=== PATIENT | female | born 1990 | race Caucasian/White ===

== ENCOUNTER → 2021-09-16 | Outpatient (CLI) | payer OTHER ==
[2021-09-16 17:24] LABS: HIV 1&2 SCREEN CENTAUR NEGATIVE (NEGATIVE)
== END ==
LOC: M WUC 10:55
PROVIDERS: ATTEND Physician Assistant
DX: R30.0 Dysuria (principal); Z20.2 Contact with and (suspected) exposure to infections with a predominantly sexual mode of transmission

== ENCOUNTER → 2021-09-16 | Outpatient (REF) | payer OTHER ==
[2021-09-16 14:20] LABS: GC DNA AMPLIFICATION NEGATIVE (NEGATIVE)
== END ==
LOC: M LAB REF 12:13
PROVIDERS: ATTEND Physician Assistant
DX: R30.0 Dysuria (principal); Z20.2 Contact with and (suspected) exposure to infections with a predominantly sexual mode of transmission

== ENCOUNTER → 2021-10-07 | Outpatient (REF) | payer OTHER ==
[2021-10-07 17:25] LABS: GC DNA AMPLIFICATION NEGATIVE (NEGATIVE)
== END ==
LOC: M WUC 15:36
PROVIDERS: ATTEND Physician Assistant
DX: N76.0 Acute vaginitis (principal)

== ENCOUNTER 2021-10-23 18:19 | Emergency (ER) | payer OTHER ==
[~2021-10-23] VITALS: Ht 185.4 cm; Wt 84.1 kg
[2021-10-23 18:20] VITALS: BP 124/77
[2021-10-23] MEDS ORDERED: ONDANSETRON 4MG ORAL DISINTEGRATING TAB PO ONE (20:20)
[2021-10-23] MEDS ORDERED: BACTRIM 160MG/800MG DS TAB PO ONE (20:20)
[2021-10-23] MEDS ORDERED: ONDA4TAB6 PO (20:22)
[2021-10-23] MEDS ORDERED: SULF1TAB23 PO (20:22)
== END 2021-10-23 20:35 | disposition home or self-care (01) ==
LOC: M ED 18:19
DX: N30.91 Cystitis, unspecified with hematuria (principal); Z88.8 Allergy status to other drugs, medicaments and biological substances

== ENCOUNTER → 2022-03-30 | Outpatient (REF) | payer OTHER ==
[~2022-03-30] MED LIST: ONDA4TAB6 PO; SULF1TAB23 PO
[2022-03-30 23:17] LABS: GC DNA AMPLIFICATION NEGATIVE (NEGATIVE)
== END ==
LOC: M LAB REF 19:42
PROVIDERS: ATTEND Physician Assistant
DX: B37.31 Acute candidiasis of vulva and vagina (principal)

== ENCOUNTER 2022-04-02 18:35 | Emergency (ER) | payer OTHER ==
[~2022-04-02] VITALS: Ht 185.4 cm; Wt 88.1 kg
[2022-04-02 18:37] VITALS: BP 128/78
[2022-04-02] MEDS ORDERED: FAMO20TA5 (18:48)
[2022-04-02] MEDS ORDERED: DOXYCYCLINE HYCLATE 100MG TABLET PO ONE (20:10)
[2022-04-02] MEDS ORDERED: DOXY-443 PO (20:10)
== END 2022-04-02 20:21 | disposition home or self-care (01) ==
LOC: M ED 18:35
DX: L03.011 Cellulitis of right finger (principal); L03.022 Acute lymphangitis of left finger; Z88.6 Allergy status to analgesic agent

== ENCOUNTER → 2022-06-08 | Outpatient (REF) | payer OTHER ==
[~2022-06-08] MED LIST changes: +DOXY-443 PO; +FAMO20TA5
[2022-06-08 14:08] LABS: GC DNA AMPLIFICATION NEGATIVE (NEGATIVE)
== END ==
LOC: M LAB REF 12:22
PROVIDERS: ATTEND Student in an Organized Health Care Education/Training Program
DX: R30.0 Dysuria (principal)

== ENCOUNTER 2022-07-19 19:47 | Emergency (ER) | payer OTHER ==
[2022-07-19 19:47] VITALS: BP 116/81
[2022-07-20] MEDS ORDERED: IBUP80TA PO (14:01)
[2022-07-20] MEDS ORDERED: BENZ200C70 PO (14:01)
[2022-07-20] MEDS ORDERED: PROA1AER2 INH (14:02)
[2022-07-20] MEDS ORDERED: MEDR4PAK PO (14:06)
== END 2022-07-20 00:30 | disposition left against medical advice (07) ==
LOC: M ED 19:47
DX: R05.9 Cough, unspecified (principal); Z53.21 Procedure and treatment not carried out due to patient leaving prior to being seen by health care provider

== ENCOUNTER 2022-07-20 08:11 | Emergency (ER) | payer OTHER ==
[~2022-07-20] VITALS: Ht 185.4 cm; Wt 86.0 kg
[2022-07-20] MEDS ORDERED: ALBUTEROL 90 MCG/ACT 8GM HFA INHALER INH ONE (11:25)
[2022-07-20 12:04] LABS: BASO % 0.6 % (0.0-1.0); EOS # 0.4 10^3/uL (0.0-0.5); EOS % 8.5 % (0.0-3.0); HEMATOCRIT 44.2 % (36.0-47.0); HEMOGLOBIN 14.4 g/dl (12.0-15.5); LYMPH # 1.7 10^3/uL (1.5-5.0); LYMPH % 34.1 % (24.0-44.0); MEAN CORPUSCULAR HEMOGLOBIN 30.6 pg (27.0-33.0); MEAN CORPUSCULAR HGB CONC 32.6 g/dl (32.0-36.5); MEAN CORPUSCULAR VOLUME 93.8 fl (80.0-96.0); MONO # 0.7 10^3/uL (0.0-0.8); MONO % 14.3 % (2.0-8.0); NEUTROPHILS # 2.1 10^3/uL (1.5-8.5); NEUTROPHILS % 42.3 % (36.0-66.0); PLATELET COUNT, AUTOMATED 243 10^3/uL (150-450); RED BLOOD COUNT 4.71 10^6/uL (4.00-5.40); WHITE BLOOD COUNT 4.8 10^3/uL (4.0-10.0)
[2022-07-20 12:31] LABS: CK-MB VALUE MASS < 1.0 NG/ML (<3.6)
[2022-07-20 12:32] LABS: LIPASE 24 U/L (12-53)
[2022-07-20 12:35] LABS: ALBUMIN 3.7 G/DL (3.2-5.2); ALKALINE PHOSPHATASE 80 U/L (46-116); ALT/SGPT 23 U/L (7.0-40); AST/SGOT 17 U/L (<34); BILIRUBIN,DIRECT 0.2 MG/DL (<0.4); BILIRUBIN,TOTAL 0.4 MG/DL (0.3-1.2); BLOOD UREA NITROGEN 12 MG/DL (9-23); CALCIUM LEVEL 8.6 MG/DL (8.5-10.1); CARBON DIOXIDE LEVEL 27 MMOL/L (20-31); CHLORIDE LEVEL 109 MMOL/L (98-107); CPK CREATINE PHOSPHOKINASE 86 U/L (34-145); CREATININE FOR GFR 0.63 MG/DL (0.55-1.30); GLOMERULAR FILTRATION RATE > 60.0 (>60); GLUCOSE, FASTING 80 MG/DL (60-100); MB/CK RELATIVE INDEX 1.16 (< OR =4); POTASSIUM SERUM 4.4 MMOL/L (3.5-5.1); SODIUM LEVEL 142 MMOL/L (136-145)
[2022-07-20 13:28] LABS: CK-MB VALUE MASS < 1.0 NG/ML (<3.6)
[2022-07-20 13:30] LABS: CPK CREATINE PHOSPHOKINASE 88 U/L (34-145); MB/CK RELATIVE INDEX 1.13 (< OR =4)
[2022-07-20] MEDS ORDERED: IBUP80TA PO (14:01)
[2022-07-20] MEDS ORDERED: BENZ200C70 PO (14:01)
[2022-07-20 14:02] VITALS: BP 154/72
[2022-07-20] MEDS ORDERED: PROA1AER2 INH (14:02)
[2022-07-20] MEDS ORDERED: MEDR4PAK PO (14:06)
== END 2022-07-20 14:16 | disposition home or self-care (01) ==
LOC: M ED 08:11
DX: J45.901 Unspecified asthma with (acute) exacerbation (principal); B34.9 Viral infection, unspecified; J12.3 Human metapneumovirus pneumonia; J06.9 Acute upper respiratory infection, unspecified; M94.0 Chondrocostal junction syndrome [Tietze]; K21.9 Gastro-esophageal reflux disease without esophagitis

== ENCOUNTER → 2022-11-15 | Outpatient (REF) | payer OTHER ==
[~2022-11-15] MED LIST changes: +BENZ200C70 PO; +IBUP80TA PO; +MEDR4PAK PO; +PROA1AER2 INH
[2022-11-16 13:03] LABS: GC DNA AMPLIFICATION NEGATIVE (NEGATIVE)
== END ==
LOC: M LAB REF 09:40
PROVIDERS: ATTEND Physician Assistant
DX: R30.0 Dysuria (principal)

== ENCOUNTER → 2022-12-26 | Outpatient (REF) | payer OTHER ==
[2022-12-27 03:11] LABS: GC DNA AMPLIFICATION NEGATIVE (NEGATIVE)
== END ==
LOC: M WUC 15:43
PROVIDERS: ATTEND Nurse Practitioner Family
DX: R30.0 Dysuria (principal); Z11.3 Encounter for screening for infections with a predominantly sexual mode of transmission; N94.10 Unspecified dyspareunia